=== PATIENT | male | born 1990 ===

== ENCOUNTER 2018-10-12 17:30 | Emergency (ER) | payer SELFPAY ==
--- NOTE | 2018-10-12 17:38 | Emergency Department Report ---
Blank Doc - Documentation Documentation: This is a 28-year-old male that presents with flu like symptoms. Stated has di zziness and near syncope. Denies any other symptoms. This initial assessment diagnostic orders/clinical plan/treatment(s) is/are subject to change based on patient's health status, clinical progression and re- assessment by fellow clinical providers in the ED. Further treatment and workup at subsequent clinical providers discretion. Patient/guardians urged not to elope from ED s their condition may be serious if not clinically assessed and managed. Initial orders include: 1-patient sent to [facility] for further evaluation and treatment. 2- CXR
[2018-10-12 17:39] VITALS: BP 128/69
--- NOTE | 2018-10-14 08:23 | XRay Report ---
FINAL REPORT EXAM: XR CHEST ROUTINE 2V HISTORY: cough TECHNIQUE: PA and lateral views of the chest PRIORS: None. FINDINGS: Lines, tubes, and devices: N/A Lungs and pleura: Trachea is normal in position. Lungs are clear of infiltrate, pleural effusion, va scular congestion, or pneumothorax. Cardiomediastinal silhouette: Cardiac and mediastinal silhouettes are unremarkable. Other: Bony structures are intact. IMPRESSION: No acute cardiopulmonary process seen.
== END 2018-10-12 21:58 | disposition left against medical advice (07) ==
LOC: ED 17:30
DX: R42 Dizziness and giddiness (principal); R55 Syncope and collapse; Z88.0 Allergy status to penicillin
CPT/HCPCS: 71046